=== PATIENT | male | born 1990 | race Caucasian/White ===

== ENCOUNTER 2022-05-10 13:46 | Emergency (ER) | payer BC ==
[2022-05-10] MEDS ORDERED: Sodium Chloride 0.9% 2.5 ML Syringe FLUSH PRN (14:31)
[2022-05-10] MEDS ORDERED: Sodium Chloride 0.9% 10 ML Syringe FLUSH PRN (14:31)
[2022-05-10] MEDS ORDERED: Ondansetron 4 MG/2 ML SDV IVPUSH ONE (14:31)
[2022-05-10] MEDS ORDERED: Sodium Chloride 0.9% 1,000 ML IV ONE (14:31)
[2022-05-10] MEDS ORDERED: Ketorolac 30 MG/ML SDV IVPUSH ONE (14:31)
[2022-05-10 15:13] LABS: BLOOD UREA NITROGEN,BUN 15 mg/dL (7.0-18.0); CARBON DIOXIDE,CO2 27.2 mmol/L (21.0-32.0); CHLORIDE,CL 102 mmol/L (98-107); ESTIMATED GFR 102 mL/min (>60); GLUCOSE RANDOM 102 mg/dL (74-106); LIPASE 189 U/L (73-393); POTASSIUM,K 3.9 mmol/L (3.5-5.1); SODIUM,NA 139 mmol/L (136-148)
[2022-05-10] MEDS ORDERED: Iopamidol 755 Mg/ML 100 ML Bottle IVPUSH ONE (15:29)
== END 2022-05-10 17:06 | disposition home or self-care (01) ==
LOC: MW.ED 13:46
DX: R10.31 Right lower quadrant pain (principal)
CPT/HCPCS: 36415; 74177; 80053; 81001; 83690; 85025; 86140; 96365; 96368; 99284; J1885; J2405; J3490; J7030; Q9967